=== PATIENT | male | born 1965 | race Caucasian/White ===

== ENCOUNTER 2021-07-18 13:28 | Emergency (ER) | payer MEDICAID ==
[~2021-07-18] VITALS: Ht 180.3 cm; Wt 170.4 kg
[~2021-07-18 13:28] MED LIST: CLEOCIN150 MG PO; KLOR-CON M2020 MEQ PO; LASIX 40 MG TAB40 MG PO
[2021-07-18 13:55] VITALS: BP 140/94
[2021-07-18 14:00] VITALS: BP 114/93
[2021-07-18 14:39] LABS: IMMATURE GRANULOCYTES 0.6 % (0.0-5.0); MEAN CORPUSCULAR HGB 29.3 pG CALC (26.0-32.0); MEAN CORPUSCULAR HGB CONC 32.5 g/dL CAL (32.0-36.0); NEUT# 7.22 thou/uL (1.82-7.42); RED BLOOD COUNT 5.02 mill/uL (4.70-6.10); RED CELL DISTRI WIDTH 16.5 % (11.5-15.5)
[2021-07-18 14:44] LABS: HEMATOCRIT 45.3 % (39.0-50.0); HEMOGLOBIN 14.7 g/dl (14.0-18.0); MEAN CELL VOLUME 90.2 fL CALC (80.0-100.0)
[2021-07-18 15:21] LABS: ALKALINE PHOSPHATASE 102 u/l (38-126); ANION GAP 8 (6-22 (CALC)); BILIRUBIN, TOTAL 0.7 mg/dL (0.0-1.4); BUN 15 mg/dL (9-20); BUN/CREATININE RATIO 15 (12-20 (CALC)); CARBON DIOXIDE 26 mmol/l (22-30); CHLORIDE 104 mmol/l (95-108); GFR > 60 ML/MIN (>=60 (CALC)); GFR FOR AFR.AMER. > 60 ML/MIN (>=60 (CALC)); LIPASE 30 u/l (23-300); POTASSIUM 4.5 mmol/l (3.5-5.1); SGOT/AST 26 u/l (17-59); SODIUM 133 mmol/l (137-146)
[2021-07-18 15:22] LABS: ALBUMIN 3.8 g/dL (3.2-5.0); TOTAL PROTEIN 7.4 g/dL (6.3-8.2)
[2021-07-18 15:45] LABS: URINE BILIRUBIN - DIPSTICK NEGATIVE (NEGATIVE); URINE BLOOD DIPSTICK SMALL (NEGATIVE); URINE COLOR YELLOW; URINE GLUCOSE - DIPSTICK NEGATIVE (NEGATIVE); URINE KETONE NEGATIVE (NEGATIVE); URINE PROTEIN - DIPSTICK TRACE mg/dL (NEG-TRACE); URINE SPECIFIC GRAVITY 1.025
[2021-07-18 15:47] LABS: URINE LEUK ESTERASE MODERATE (NEGATIVE); URINE NITRITE - DIPSTICK NEGATIVE (Negative)
[2021-07-18 15:52] LABS: URINE CALCIUM OXALATE CRYSTALS FEW lpf; URINE SQUAMOUS EPITHELIAL CELL FEW EPI/hpf (0-FEW); URINE WBC 20-50 WBC/hpf (0-5)
[2021-07-18] MEDS ORDERED: TRAMADOL HCL50 MG PO (16:23)
[2021-07-18] MEDS ORDERED: MIRALAX17 GM PO (16:23)
[2021-07-18] MEDS ORDERED: KEFLEX500 MG PO (16:23)
[2021-07-18 16:53] VITALS: BP 130/80
[2021-07-18 16:57] VITALS: BP 130/70
== END 2021-07-18 16:58 | disposition home or self-care (01) ==
LOC: ED 13:28
PROVIDERS: Nurse Practitioner
DX: K59.00 Constipation, unspecified (principal); N39.0 Urinary tract infection, site not specified; I10 Essential (primary) hypertension; I48.20 Chronic atrial fibrillation, unspecified; Z79.82 Long term (current) use of aspirin; Z86.73 Personal history of transient ischemic attack (TIA), and cerebral infarction without residual deficits; Z87.442 Personal history of urinary calculi